=== PATIENT | male | born 1995 | race Asian ===

== ENCOUNTER 2022-04-01 07:56 | Emergency (ER) | payer OTHER, SELFPAY ==
[~2022-04-01] VITALS: Ht 182.9 cm; Wt 79.5 kg
[2022-04-01] MEDS ORDERED: IBUPROFEN 800 MG TAB PO ONE (11:20)
[2022-04-01 12:45] VITALS: BP 140/85
== END 2022-04-01 12:49 | disposition home or self-care (01) ==
LOC: M ED 07:56
DX: S80.212A Abrasion, left knee, initial encounter (principal); S50.311A Abrasion of right elbow, initial encounter; S60.511A Abrasion of right hand, initial encounter; S60.512A Abrasion of left hand, initial encounter; W17.89XA Other fall from one level to another, initial encounter; Y92.89 Other specified places as the place of occurrence of the external cause; Y99.0 Civilian activity done for income or pay; F17.200 Nicotine dependence, unspecified, uncomplicated